=== PATIENT | male | born 1980 | race Caucasian/White ===

== ENCOUNTER → 2018-05-08 | Outpatient (CLI) | payer BC ==
--- NOTE | 2018-05-08 16:01 | KCIC ---
Complete abdominal ultrasound History: Right upper quadrant pain.. Findings: Aorta: Poorly visualized, no gross aneurysm or seen. Inferior vena cava: Poorly visualized Pancreas: Poorly visualized Liver: Mildly enlarged, coarse echogenicity compatible with fatty infiltration. There is a lesion within the liver near the gallbladder fossa measuring 2.1 cm diameter, with a smaller adjacent lesion which measures 1.5 cm. Note that evaluation is limited due to the hepatic steatosis and echogenicity which limits ultrasound penetration. Gallbladder: No evidence of cholelithiasis, gallbladder wall thickening or pericholecystic fluid. Bile ducts: No evidence of dilatation Right kidney: 12.0 cm length. No evidence of hydronephrosis. Left kidney: 14.0 cm length. Hypoechoic lesion at the lower pole measures 1.9 cm, most compatible with a cyst. There may be mild caliectasis. Spleen: Not enlarged Impression: 1. Mild hepatomegaly with diffuse steatosis. This results in limited liver evaluation due to suboptimal ultrasound penetration, but there are at least 2 focal liver lesions, measuring up to 2.1 cm, near the gallbladder fossa. These may represent focal areas of fatty sparing, versus solid masses. CT or MRI of the abdomen with contrast could further evaluate. 2. Poor visualization of the midline structures. 3. Lower pole left kidney lesion most likely a cyst, 1.9 cm. There may be mild left renal caliectasis. Electronically signed by: Reno Pñea MD (05/08/2018 3:57 PM) [id number]
== END | disposition home or self-care (01) ==
LOC: KCIC US 08:31
PROVIDERS: ATTEND Internal Medicine Gastroenterology
DX: K76.0 Fatty (change of) liver, not elsewhere classified (principal); N28.89 Other specified disorders of kidney and ureter; R16.0 Hepatomegaly, not elsewhere classified
CPT/HCPCS: 76700